=== PATIENT | male | born 1985 ===

== ENCOUNTER 2017-05-05 20:18 | Emergency (ER) | payer MEDICARE, MEDICAID ==
[~2017-05-05] VITALS: Ht 182.9 cm; Wt 90.9 kg
[2017-05-05] MEDS ORDERED: LORazepam 2 mg/ml vial IM ONE (20:40)
[2017-05-05 21:10] LABS: ALANINE AMINOTRANSFERASE 28 U/L (12-78); ALBUMIN 3.9 G/DL (3.4-5.0); ALBUMIN/GLOBULIN RATIO 1.2 (1.1-1.5); ALKALINE PHOSPHATASE 78 IU/L (46-116); ANION GAP 10 (8-16); ASPARTATE AMINO TRANSFERASE 28 U/L (10-37); BILIRUBIN,TOTAL 0.5 MG/DL (0.1-1.0); BLOOD UREA NITROGEN 14 MG/DL (7-18); BUN/CREATININE RATIO 12.7 (5.4-32.0); CALCIUM 8.8 MG/DL (8.5-10.1); CHLORIDE 104 MMOL/L (99-107); CREATINE KINASE 346 U/L (39-308); GLUCOSE 126 MG/DL (70-104); POTASSIUM 4.1 MMOL/L (3.5-5.1); SODIUM 140 MMOL/L (135-145); TOTAL PROTEIN 7.2 G/DL (6.4-8.2); eGFR 79 ML/MIN
[2017-05-06 01:34] VITALS: BP 156/85
== END 2017-05-05 21:38 ==
LOC: ER 20:19 → EDBD 20:19 → ER 21:38
DX: S02.2XXA Fracture of nasal bones, initial encounter for closed fracture (principal); F19.959 Other psychoactive substance use, unspecified with psychoactive substance-induced psychotic disorder, unspecified; Z02.89 Encounter for other administrative examinations; W22.8XXA Striking against or struck by other objects, initial encounter; Y93.89 Activity, other specified; Y92.89 Other specified places as the place of occurrence of the external cause; Y99.8 Other external cause status
CPT/HCPCS: 36415; 70150; 80053; 82550; 96372; 99285; J2060